=== PATIENT | female | born 1980 | race Hispanic/Latino ===

== ENCOUNTER → 2020-02-10 | Day surgery (SDC) | payer BC, OTHER ==
[~2020-02-10] MED LIST: FENTANYL CITRATE/PF 100MCG/2 ML INJ ONE; LIDOCAINE HCL 2% LOCAL INJ 5 ML SDV VIAL INJ ONE; METOCLOPRAMIDE HCL 10 MG/2ML VIAL ONE; MIDAZOLAM HCL 2 MG/2 ML VIAL ONE; PANTOPRAZOLE 40 MG 10ML VIAL ONE; PROPOFOL IV EMULSION 10 MG/ML 20 ML VIAL ONE
[2020-02-10 13:00] VITALS: BP 122/80
== END | disposition home or self-care (01) ==
LOC: OR 09:32
PROVIDERS: ATTEND Internal Medicine Gastroenterology
DX: K29.70 Gastritis, unspecified, without bleeding (principal); K22.10 Ulcer of esophagus without bleeding; K22.8 Other specified diseases of esophagus; K44.9 Diaphragmatic hernia without obstruction or gangrene; K21.9 Gastro-esophageal reflux disease without esophagitis; R03.0 Elevated blood-pressure reading, without diagnosis of hypertension; Z01.812 Encounter for preprocedural laboratory examination; Z11.59 Encounter for screening for other viral diseases; Z68.27 Body mass index [BMI] 27.0-27.9, adult
CPT/HCPCS: 43239; 81025; C9113; J2001; J2250; J2704; J2765; J3010; U0002